=== PATIENT | female | born 1995 | race Caucasian/White ===

== ENCOUNTER 2018-07-06 14:03 | Emergency (ER) | payer OTHER ==
[2018-07-06 14:09] VITALS: BP 129/86; PULSE 103; TEMP 97.6; BMI 28.1
--- NOTE | 2018-07-06 14:41 | PDOC ---
Rapid Medical Evaluation Chief Complaint: Vaginal Bleeding Time Seen by Provider: 07/06/18 14:37 Medical Evaluation: Allergies Allergy/AdvReac Type Severity Reaction Status Date / Time No Known Allergies Allergy Verified 07/06/18 14:09 Vital Signs Temp Pulse Resp BP Pulse Ox 97.6 F 103 H 18 129/86 98 07/06/18 14:06 07/06/18 14:06 07/06/18 14:06 07/06/18 14:06 07/06/18 14:06 07/06/18 14:38 I have performed a brief in-person evaluation of this patient. The patient presents with a chief complaint of: 6wks preg with vaginal bleeding LMP- 04/27 Pertinent physical exam findings:abd SNTND. Audiovisual Aids Technician-deferred I have ordered the following: labs, urine, TVUS The patient will proceed to the ED for further evaluation. Discharge Disposition - Diagnosis Vaginal bleeding affecting early - Referrals Referrals: Sandie Marcano [Primary Care Provider] - - Patient Instructions - Post Discharge Activity
--- NOTE | 2018-07-06 14:54 | PDOC ---
History of Present Illness - General History Source: Patient Exam Limitations: No Limitations - History of Present Illness Initial Comments: 07/06/18 15:33 22 YOF with unremarkable PMH who is (about 6 wks by LMP) who p/w vaginal bleeding and suprapubic cramping since yesterday. She notes spotting yesterday which progressed to more significant bleeding today with passage of multiple clots but no white tissue/material. She notes 5/10 lower abdominal cramping, but otherwise has no new symptoms. Denies chest pain, lightheadedness , dizziness, headache, SOB, LOC, dysuria, abnormal vaginal discharge, or other symptoms. Did not take medication for the symptoms at home. <Albright,Leigha - Last Filed: 07/06/18 17:47> <Jennie Roman - Last Filed: 07/08/18 08:03> - General Chief Complaint: Vaginal Bleeding Stated Complaint: VAGINAL BLEEDING () Time Seen by Provider: 07/06/18 14:37 Past History - Past Medical History COPD: No - Suicide/Smoking/Psychosocial Hx Smoking History: Never smoked <Albright,Leigha - Last Filed: 07/06/18 17:47> <Jennie Roman - Last Filed: 07/08/18 08:03> - Past Medical History Allergies/Adverse Reactions: Allergies Allergy/AdvReac Type Severity Reaction Status Date / Time No Known Allergies Allergy Verified 07/06/18 14:09 Home Medications: Ambulatory Orders Misoprostol [Cytotec -] 600 mcg PO ONCE #1 tablet 07/06/18 Vit 108/Iron/Folic AC [ One Tablet] 1 each PO DAILY 07/06/18 Review of Systems - Review of Systems Able to Perform ROS?: Yes Comments:: GEN: no fever, chills, malaise, generalized weakness, or weight change HEENT: no ear pain, sore throat, vision change, or eye pain CV: no chest pain, palpitations, lightheadedness, syncope, or edema RESP: no cough, wheezing, or SOB GI: abdominal pain, nausea, vomiting, diarrhea, constipation, or white/black/ bloody stool : vaginal bleeding, no dysuria, hematuria, or incontinence MSK: no neck/back pain, muscle weakness/pain, or joint swelling/pain NEURO: no headache, seizure, vertigo, numbness, tingling, or focal weakness PSYCH: no substance use, no behavior change SKIN: no jaundice, no rash ROS otherwise negative except as noted in HPI <Leigha Albright - Last Filed: 07/06/18 17:47> *Physical Exam - Vital Signs Last Vital Signs Temp Pulse Resp BP Pulse Ox 97.6 F 103 H 18 129/86 98 07/06/18 14:06 07/06/18 14:06 07/06/18 14:06 07/06/18 14:06 07/06/18 14:06 <Leigha Albright - Last Filed: 07/06/18 17:47> - Vital Signs Last Vital Signs Temp Pulse Resp BP Pulse Ox 97.6 F 103 H 18 129/86 98 07/06/18 14:06 07/06/18 14:06 07/06/18 14:06 07/06/18 14:06 07/06/18 14:06 <Jennie Roman - Last Filed: 07/08/18 08:03> Moderate Sedation - Procedure Monitoring Vital Signs: Procedure Monitoring Vital Signs Temperature 97.6 F 07/06/18 14:06 Pulse Rate 103 H 07/06/18 14:06 Respiratory Rate 18 07/06/18 14:06 Blood Pressure 129/86 07/06/18 14:06 O2 Sat by Pulse Oximetry (%) 98 07/06/18 14:06 <Leigha Albright - Last Filed: 07/06/18 17:47> - Procedure Monitoring Vital Signs: Procedure Monitoring Vital Signs Temperature 97.6 F 07/06/18 14:06 Pulse Rate 103 H 07/06/18 14:06 Respiratory Rate 18 07/06/18 14:06 Blood Pressure 129/86 07/06/18 14:06 O2 Sat by Pulse Oximetry (%) 98 07/06/18 14:06 <Jennie Roman - Last Filed: 07/08/18 08:03> ED Treatment Course - LABORATORY CBC & Chemistry Diagram: 07/06/18 14:54 07/06/18 14:54 <Leigha Albright - Last Filed: 07/06/18 17:47> - LABORATORY CBC & Chemistry Diagram: 07/06/18 14:54 07/06/18 14:54 - ADDITIONAL ORDERS Additional order review: 07/06/18 14:54 RBC 4.68 MCV 91.2 MCHC 32.8 RDW 13.5 MPV 8.8 Neutrophils % 83.4 H Lymphocytes % 10.2 Monocytes % 5.9 Eosinophils % 0.3 Basophils % 0.2 - Medications Given in the ED: ED Medications Discontinued Medications Generic Name Dose Route Start Last Admin Trade Name Carmelita PRN Reason Stop Dose Admin Acetaminophen 1,000 mg 07/06/18 15:36 07/06/18 16:30 Ofirmev Injection - IVPB 07/06/18 15:37 1,000 mg ONCE ONE Administration <Jennie Roman - Last Filed: 07/08/18 08:03> Medical Decision Making - Medical Decision Making 07/06/18 14:52 First trimester female p/w vaginal bleeding and/or lower abdominal pain at <20 wks gestation. Initial Vital Signs Temp Pulse Resp BP Pulse Ox 97.6 F 103 H 18 129/86 98 07/06/18 14:06 07/06/18 14:06 07/06/18 14:06 07/06/18 14:06 07/06/18 14:06 Exam: As noted in Physical Exam section. DDX IBNLT: threatened/inevitable/incomplete/complete/septic , ectopic, PID, TOA/cervicitis, endometritis, ruptured ovarian cyst, ovarian torsion, malignancy, menorrhagia, endometriosis, rectal bleed, hematuria, constipation, fibroids, etc. W/U ordered: CBCD CMP Mg Phos Coags T&S UA UCx hCG Quant TVUS. TX ordered: TVUS: Labs: Reassessment: Repeat VS: ADMIT The Pts symptoms persist despite ED treatments. The Pt is unsafe for discharge at this time. They require further hospital observation, workup, and treatment. Microblog sent to [facility] for admission. Blank Decision to Admit order is placed per ED protocol. Spoke with admitting team advertising sales representative, in agreement Pt to be admitted. Decision to Admit order corrected with admitting team covering attendings name. DISCHARGE The Pt is offered misoprostol to aid the passage of products of conception. They are counseled on the risks and benefits, they understand, and are aware this is optional. They choose to take misoprostol, dose was given here, they understand to expect more blood/pain. The Pt does XXXXX require Rhogam. Workup is not concerning for emergency-level pathology at this time. The Pt is appropriate for discharge home w/ close outpatient f/u. The Pt is comfortable with this plan and will follow up with their primary care provider in 1-3 days. She will also follow up with her JEWELRY SORTER in 1-3 days. She will take primarily Tylenol for pain. Specific return precautions are discussed and they will come back to the ER if necessary. <Leigha Albright - Last Filed: 07/06/18 17:47> *DC/Admit/Observation/Transfer - Discharge Dispostion Decision to Admit order: No <Leigha Albright - Last Filed: 07/06/18 17:47> <Jennie Roman - Last Filed: 07/08/18 08:03> Diagnosis at time of Disposition: Incomplete - Discharge Dispostion Disposition: HOME Condition at time of disposition: Stable - Prescriptions Prescriptions: Misoprostol [Cytotec -] 600 mcg PO ONCE #1 tablet - Referrals Referrals: Sandie Marcano [Primary Care Provider] - Fabio Cosby MD [Staff Physician] - - Patient Instructions Additional Instructions: You were seen in the ER for vaginal bleeding in . We did an exam, laboratory work on your blood and urine, and an ultrasound. After our assessment , we believe you are having a miscarriage but we do not think you are having a medical emergency at this time, and you are safe to go home. Please take Tylenol for any mild-moderate pain. 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 Take it if you wish, to help with the process of the miscarriage, and if you decide to take it please follow the instructions on the label. Ask the pharmacist about how to take this medication too. Follow up with your mechanical energy engineer and primary care provider in the next 1-3 days. Call their clinic [facility], tell them you were seen in the ER, and tell them you need an appointment. You should expect some bleeding and abdominal cramping for the next week. Please come back to the ER at any time (24 hours a day) for any new or worsening symptoms, like worsening pelvic pain, discharge, high fever, headache, seizure, fainting, anemia, or emergency other symptoms. If you are having severe or life threatening symptoms , or symptoms that make it unsafe to drive or have someone drive you, please call 911. - Post Discharge Activity Forms/Work/School Notes: Back to Work
[2018-07-06 15:13] LABS: BASO % 0.2 % (0-2.0); EOS % 0.3 % (0-4.5); HEMATOCRIT 42.6 % (32.4-45.2); LYMPH % 10.2 % (8-40); MCH 29.9 pg (25.7-33.7); MCHC 32.8 g/dl (32.0-36.0); MEAN CELL VOLUME 91.2 fl (80-96); MEAN PLT VOLUME 8.8 fl (7.5-11.1); MONO % 5.9 % (3.8-10.2); NEUT % 83.4 % (42.8-82.8); PLATELET COUNT 175 K/MM3 (134-434); RBC 4.68 M/mm3 (3.60-5.2); RDW 13.5 % (11.6-15.6); WHITE BLOOD COUNT 8.3 K/mm3 (4.0-10.0)
--- NOTE | 2018-07-06 15:24 | PDOC ---
Attending Attestation - Resident Resident Name: Leigha Albright - ED Attending Attestation I have performed the following: I have examined & evaluated the patient, The case was reviewed & discussed with the resident, I agree w/resident's findings & plan - HPI HPI: 07/06/18 16:33 22YOF , with no significant past medical history, who presents to the emergency department with, 2 days of vaginal bleeding and suprapubic cramping. She ranks her pain a 5/10 and notes seeing large clots in her vaginal bleeding worse today. LMP 04/2018, currently ~6 weeks . She denies abnormal vaginal discharge. She denies recent fevers, chills, headache or dizziness. She denies recent nausea, vomit, diarrhea or constipation. She denies recent dysuria, frequency, urgency or hematuria. She denies recent chest pain or shortness of breath. Allergies: NKDA Primary Care Physician: Dr. Marcano - Physicial Exam PE: 07/06/18 16:30 NAD, well appearing, PERRL, EOMI, MMM, nl conjunctiva, anicteric; neck supple. lungs clear, RRR, abdomen soft nontender. pelvic exam with resident, +blood in vault, normal external genitalia. no adnexal tenderness. mucus and clear discharge and open cervical os. No peripheral edema. normal color for ethnicity, WWP. - Medical Decision Making 07/06/18 16:31 Vital signs reviewed, mild tachy, but in pain and bleeding. Prior notes reviewed, including admissions, discharges and consultations. laboratory results and imaging reviewed, basic labs and lytes wnl, notable for beta hcg <6000. UA_blood, likely contaminated and no s/s infection ED course: pt passed blood clots in the BR. TVUS with no intrauterine gestation, likely clot and thickened endometrium, so suggestive of miscarriage and less likely ectopic with early gestational sac on prior pelvic US. given tylenol for analgesia. bleeding controlled. txs_rh positive, no rhogam offered cytotec, but unsure if she wants to take, sent to pharmacy. Dispo: Pt to be discharged in stable condition. Patient and family made aware of impression and plan, return precautions discussed (including but not limited to worsening pain or symptoms), fevers, or signs of infection, chest pain, respiratory distress, inability to tolerate oral intake, dehydration, syncope, or neurologic changes). Follow up with PMD and/or specialist as recommended, follow up information provided, take medications as instructed for duration of time. continue with supportive care, avoid triggers and precipitants. All questions answered to patient's satisfaction and expressed understanding and comfort with this. 07/06/18 16:33 07/06/18 20:24
[2018-07-06] MEDS ORDERED: ACETAMINOPHEN 1000 MG/100 ML VIAL (NON FORMULARY) IVPB ONE (15:36)
[2018-07-06 15:46] LABS: ANION GAP 11 MMOL/L (8-16); BLOOD UREA NITROGEN 11 mg/dL (7-18); CALCIUM 9.1 mg/dL (8.5-10.1); CHLORIDE 104 mmol/L (98-107); CO2 24 mmol/L (21-32); CREATININE 0.6 mg/dL (0.55-1.3); GLUCOSE,RANDOM 108 mg/dL (74-106); POTASSIUM 3.8 mmol/L (3.5-5.1); SODIUM 138 mmol/L (136-145)
[2018-07-06] MEDS ORDERED: ACETAMINOPHEN INJECTION 100 ML IVPB ONE (15:46)
[2018-07-06 17:24] LABS: URINE APPEARANCE CLOUDY; URINE BILIRUBIN NEGATIVE (<2.0 mg/dL); URINE COLOR RED; URINE GLUCOSE (UA) NEGATIVE (NEGATIVE); URINE KETONE NEGATIVE (NEGATIVE); URINE LEUK ESTERASE TRACE (NEGATIVE); URINE NITRITE NEGATIVE (NEGATIVE); URINE PROTEIN 2+ (NEGATIVE); URINE UROBILINOGEN NEGATIVE mg/dL (0.2-1.0)
[2018-07-06 17:48] LABS: EPI CELLS RARE /HPF (FEW); URINE MUCUS MANY
== END 2018-07-06 17:42 | disposition home or self-care (01) ==
LOC: JER 14:03
PROC: 3E033NZ Introduction of Analgesics, Hypnotics, Sedatives into Peripheral Vein, Percutaneous Approach (ICD-10-PCS; principal; 2018-07-06)
DX: O03.4 Incomplete spontaneous abortion without complication (principal)
CPT/HCPCS: 36415; 76817-TC; 80048; 81003; 81015; 84702; 85025; 86850; 86900; 86901; 87086; 96374; 99284-25; J0131

== ENCOUNTER 2018-12-14 20:37 | Emergency (ER) | payer OTHER ==
--- NOTE | 2018-12-14 20:56 | PDOC ---
Rapid Medical Evaluation Time Seen by Provider: 12/14/18 20:53 Medical Evaluation: Allergies Allergy/AdvReac Type Severity Reaction Status Date / Time No Known Allergies Allergy Verified 07/06/18 14:09 12/14/18 20:53 HPI:Hx of R wrist abscess I&D today at [facility] now with res streaks up arm PE:R arm erythemic and warm streak ORDERS: Nothing Discharge Disposition - Diagnosis Cellulitis of arm, right - Referrals Referrals: Sandie Marcano [Primary Care Provider] - - Patient Instructions - Post Discharge Activity
[2018-12-14 20:57] VITALS: BP 134/93; PULSE 90; TEMP 98.7; BMI 28.3
--- NOTE | 2018-12-14 21:12 | PDOC ---
History of Present Illness - General Chief Complaint: Redness To Affected Area Stated Complaint: REF BY DOCTOR Time Seen by Provider: 12/14/18 20:53 History Source: Patient Exam Limitations: No Limitations - History of Present Illness Initial Comments: Pt is a 23-year-old female who states over the past 3 days she has had vesicles on the dorsal aspect of her right hand. Patient states she went to the urgent care center where they "popped" the vesicles. Patient states that it is now erythematous around the area. Patient denies history of herpetic lesions. She denies contacts with a similar rash. Patient denies fever/chills. She states that the area is painful. Pain is a 4 out of 10. Denies any aggravating or relieving factors. 12/14/18 21:06 Past History - Travel Traveled outside of the country in the last 30 days: No Close contact w/someone who was outside of country & ill: No - Past Medical History Allergies/Adverse Reactions: Allergies Allergy/AdvReac Type Severity Reaction Status Date / Time No Known Allergies Allergy Verified 07/06/18 14:09 Home Medications: Ambulatory Orders Acyclovir [Zovirax -] 400 mg PO TID #42 capsule 12/14/18 Cephalexin [Keflex] 1,000 mg PO BID 7 Days #28 capsule 12/14/18 Sulfamethoxazole/Trimethoprim [Bactrim Ds -] 1 tab PO BID #14 tablet 12/14/18 COPD: No - Reproductive History Cervical CA: No Dysfunctional Uterine Bleeding: No Ectopic : No Endometrial CA: No Polycystic Ovaries: No Therapeutic (s) & number: No Tubal Ligation: No - Suicide/Smoking/Psychosocial Hx Smoking History: Never smoked Review of Systems - Review of Systems Able to Perform ROS?: Yes Constitutional: No: Chills, Fever Integumentary: Yes: Erythema *Physical Exam - Vital Signs Last Vital Signs Temp Pulse Resp BP Pulse Ox 98.7 F 90 18 134/93 98 12/14/18 20:55 12/14/18 20:55 12/14/18 20:55 12/14/18 20:55 12/14/18 20:55 - Physical Exam Comments: Constitutional: VS stated, pt appears in no apparent distress; sitting in chair. Skin: Has Eight 0.1 cm vesicles to the dorsal aspect of the right hand. There is mild erythema 1 cm surrounding this area. Head: Normocephalic; atraumatic Eyes: conjunctiva pink without injection or discharge. Throat: Oropharynx with pink and moist mucosa. Lungs: Bilateral breath sounds clear upon auscultation. No adventitious breath sounds. Heart: Regular rate and rhythm, Musculoskeletal: Moves all extremities without difficulty. Neurologic: Awake, alert. Conversation fluent. 12/14/18 21:07 *DC/Admit/Observation/Transfer Diagnosis at time of Disposition: Cellulitis of arm, right, Herpetic lesions - Discharge Dispostion Disposition: HOME Condition at time of disposition: Good - Prescriptions Prescriptions: Acyclovir [Zovirax -] 400 mg PO TID #42 capsule Cephalexin [Keflex] 1,000 mg PO BID 7 Days #28 capsule Sulfamethoxazole/Trimethoprim [Bactrim Ds -] 1 tab PO BID #14 tablet - Referrals Referrals: Sandie Marcano [Primary Care Provider] - - Patient Instructions Printed Discharge Instructions: DI for Cellulitis -- Adult Additional Instructions: Take Acyclovir as directed for potential herpetic lesions on the hand. Do not pop the lesions. Take antibiotics as directed. Take a probiotic while take the antiiotics. F/u with your PCP in 48-72 hours. - Post Discharge Activity
== END 2018-12-14 21:23 | disposition home or self-care (01) ==
LOC: JERFT 20:37
DX: L03.113 Cellulitis of right upper limb (principal); B00.89 Other herpesviral infection
CPT/HCPCS: 99281-25

== ENCOUNTER 2020-11-02 10:44 | Emergency (ER) | payer OTHER ==
[2020-11-02 10:52] VITALS: BP 135/93; PULSE 113; BMI 32.9
[2020-11-02] MEDS ORDERED: KETOROLAC TROMETHAMINE 30 MG/1 ML VIAL IM ONE (11:26)
[2020-11-02] MEDS ORDERED: KETOROLAC TROMETHAMINE 30 MG/1 ML VIAL ONE (11:27)
== END 2020-11-02 11:47 | disposition home or self-care (01) ==
LOC: JERFT 10:44
PROC: 3E023GC Introduction of Other Therapeutic Substance into Muscle, Percutaneous Approach (ICD-10-PCS; principal; 2020-11-02)
DX: M79.672 Pain in left foot (principal)
CPT/HCPCS: 96372; 99284-25

== ENCOUNTER 2022-03-06 18:35 | Emergency (ER) | payer OTHER ==
[2022-03-06 19:18] VITALS: BP 131/91; PULSE 89; RESP 19; TEMP 98.1; BMI 32.9
[2022-03-06 21:06] LABS: HCG,QUALITATIVE URINE Negative
[2022-03-06 21:07] LABS: EPI CELLS >36 /uL (0-25.1); HYALINE CASTS 3 /uL (0-3.1); PH,URINE 5.5 (5.0-8.0); URINE APPEARANCE CLOUDY; URINE BILIRUBIN NEGATIVE (NEGATIVE); URINE COLOR YELLOW; URINE GLUCOSE (UA) NEGATIVE (NEGATIVE); URINE KETONE TRACE (NEGATIVE); URINE LEUK ESTERASE 2+ (NEGATIVE); URINE NITRITE NEGATIVE (NEGATIVE); URINE PROTEIN 1+ (NEGATIVE); URINE WBC 1266 /uL (0-25.8)
[2022-03-06 21:54] LABS: URINE RBC 125.3 /uL (0-23.9); YEAST NONE SEEN (NEGATIVE)
== END 2022-03-06 21:30 | disposition home or self-care (01) ==
LOC: JERFT 18:35
DX: N89.8 Other specified noninflammatory disorders of vagina (principal)
CPT/HCPCS: 36415; 81003; 84703; 87086; 87186; 87491; 87591; 99283-25